=== PATIENT | female | born 1955 | race African-American/Black ===

== ENCOUNTER 2024-01-23 19:23 | Inpatient (IN) | payer MEDICARE, MEDICAID ==
[~2024-01-23] VITALS: Ht 165.1 cm; Wt 65.3 kg
[2024-01-23] MEDS: SODIUM CHLORIDE 0.9% 1000ML BAG (SEPSIS BOLUS) IV ONE (20:01)
[2024-01-23 20:11] LABS: HEMATOCRIT. 21.9 % (36.0-48.0); HEMOGLOBIN. 7.5 g/dL (12.0-16.0); MEAN CORPUSCULAR HEMOGLOBIN 31.3 pg (28.0-32.0); MEAN CORPUSCULAR HGB CONC 34.4 g/dL (31.0-37.0); MEAN PLATELET VOLUME 9.1 fl (7.4-10.4); PLATELET 140 x1000/uL (130-400); RED BLOOD CELL COUNT 2.41 mill/uL (4.2-5.4); RED CELL DISTRIBUTION WIDTH 18.8 % (11.6-14.6); WHITE BLOOD COUNT 10.4 x1000/uL (4.5-11.0)
[2024-01-23 20:13] LABS: DIFFERENTIAL COMMENT 1
[2024-01-23 20:17] LABS: CHLORIDE 102 mEq/L (98-107); SODIUM 140 mEq/L (136-145)
[2024-01-23 20:18] LABS: CALCIUM 10.5 mg/dL (8.7-10.4); CARBON DIOXIDE 29 mEq/L (21-32)
[2024-01-23 20:22] LABS: INR 1.1
[2024-01-23 20:23] LABS: CREATININE 2.2 mg/dL (0.6-1.0); GLUCOSE 144 mg/dL (70-105); UREA NITROGEN BLOOD 38 mg/dL (9-23)
[2024-01-23 20:25] LABS: LACTIC ACID 2.7 mmol/L (0.4-2.0)
[2024-01-23 20:27] LABS: POTASSIUM 2.6 mEq/L (3.5-5.1); TROPONIN I HIGH SENSITIVITY 375 ng/L (3.0-34)
[2024-01-23 21:16] LABS: ANISOCYTOSIS 2+; NUCLEATED RED BLOOD CELLS 5 /100 WBC; PLATELET ESTIMATE NORMAL
[2024-01-23] MEDS: KCL 20MEQ/100ML PREMIX 100 ML IV NR (22:27)
[2024-01-23] MEDS: ENOXAPARIN 60MG/0.6ML SYR SUBCUT NR (22:27)
[2024-01-23] MEDS: ASPIRIN 325MG EC TABLET PO NR (22:27)
[2024-01-23] MEDS: PIPERACILLIN/TAZO 3.375G/50ML 50 ML IV NR (23:14)
[2024-01-23] MEDS: ASPIRIN 81MG TABLET GT ONE (23:16)
[2024-01-23 23:39] LABS: GLUCOSE URINE NEGATIVE (NEGATIVE); KETONES URINE TRACE (NEGATIVE)
[2024-01-23 23:45] LABS: CLARITY URINE TURBID (CLEAR)
[2024-01-23 23:46] LABS: LEUKOCYTE ESTERASE URINE 3+ (NEGATIVE); NITRITE URINE POSITIVE (NEGATIVE); OCCULT BLOOD URINE TRACE (NEGATIVE); PROTEIN URINE TRACE (NEGATIVE); SPECIFIC GRAVITY URINE 1.031 (1.005-1.030); UROBILINOGEN URINE 0.2 E.U./dL (0.2-1.0)
[2024-01-23 23:48] LABS: COLOR URINE BROWN (YELLOW)
[2024-01-23 23:50] LABS: TROPONIN I HIGH SENSITIVITY 386 ng/L (3.0-34)
[2024-01-23 23:50] LABS: RBC URINE TNTC /hpf (0-2); SQUAMOUS EPITHELIAL CELL URINE 2+ /lpf (RARE/1+); WBC URINE TNTC /hpf (0-2)
[2024-01-23 23:51] LABS: BACTERIA URINE 4+
[2024-01-24] VITALS (21 sets, daily range): BP systolic 73–92; BP diastolic 43–59; PULSE 86–108; RESP 7–38; TEMP 97.2–98.9
[2024-01-24] MEDS ORDERED: MIDODRINE HCL 5MG TABLET PO SCH
[2024-01-24] MEDS: MIDODRINE HCL 5MG TABLET PO NR (00:39)
[2024-01-24] MEDS ORDERED: ACETAMINOPHEN 650MG/20.3ML UDC PO PRN (05:15)
[2024-01-24] MEDS ORDERED: NON FORMULARY PATIENT HOME MED XX SCH (05:15)
[2024-01-24] MEDS ORDERED: IPRATROPIUM BROMIDE (0.02%) 0.5MG/2.5ML NEB HHN PRN (05:15)
[2024-01-24] MEDS: PIPERACILLIN/TAZO 3.375G/50ML 50 ML IV SCH (06:01)
[2024-01-24] MEDS: PANTOPRAZOLE SODIUM 40 MG/VIAL IV SCH (06:01)
[2024-01-24] MEDS: POTASSIUM CHLORIDE 20MEQ/PACKET PO NR (06:02)
[2024-01-24] MEDS: MIDODRINE HCL 5MG TABLET PO SCH ×2 (06:02→13:41)
[2024-01-24] MEDS: HYDROCODONE/ACETAMINOPHEN 5/325MG TABLET PO PRN (06:06)
[2024-01-24] MEDS: VANCOMYCIN 1GM/200ML PMX (BAXTER) IV NR (10:12)
[2024-01-24] MEDS: FOLIC ACID/VITAMIN B COMP W-C TABLET PO SCH (10:13)
[2024-01-24] MEDS ORDERED: DOCUSATE SODIUM 100MG CAPSULE PO PRN (10:15)
[2024-01-24] MEDS: LEVOTHYROXINE SODIUM 25MCG TABLET PO SCH (10:15)
[2024-01-24] MEDS: SODIUM CHLORIDE 0.45% 1,000 ML IV SCH (10:47)
[2024-01-24] MEDS: SODIUM CHLORIDE 0.9% 250 ML IV ONE (10:48)
[2024-01-24 10:53] LABS: BG BASE EXCESS -0.2 mmol/L (-2.0-2.0); BG CARBOXYHEMOGLOBIN 0.3 % (0.5-1.5); BG DEOXYHEMOGLOBIN 1.2 % (0.0-5.0); BG FRACTION INSPIRED OXYGEN 50; BG HCO3 ACT 25.6 mmol/L (22.0-26.0); BG METHEMOGLOBIN 0.3 % (0.0-1.5); BG OXYGEN SATURATION 98.8 % (92.0-98.5); BG OXYHEMOGLOBIN 98.2 % (94.0-97.0); BG PCO2 47.6 mmHg (35.0-45.0); BG PH 7.349 (7.350-7.450); BG PO2 145.6 mmHg (75.0-100.0); BG SAMPLE SITE RIGHT RADIAL; BG TOTAL HEMOGLOBIN 8.6 g/dL (12.0-18.0)
[2024-01-24 10:55] LABS: HEMATOCRIT. 24.8 % (36.0-48.0); HEMOGLOBIN. 8.4 g/dL (12.0-16.0); MEAN CORPUSCULAR HEMOGLOBIN 30.4 pg (28.0-32.0); MEAN CORPUSCULAR HGB CONC 33.9 g/dL (31.0-37.0); MEAN CORPUSCULAR VOLUME 89.6 fL (81.0-99.0); MEAN PLATELET VOLUME 9.5 fl (7.4-10.4); PLATELET 103 x1000/uL (130-400); RED BLOOD CELL COUNT 2.77 mill/uL (4.2-5.4); RED CELL DISTRIBUTION WIDTH 17.7 % (11.6-14.6); WHITE BLOOD COUNT 7.8 x1000/uL (4.5-11.0)
[2024-01-24 10:58] LABS: POTASSIUM 3.9 mEq/L (3.5-5.1)
[2024-01-24 10:59] LABS: CALCIUM 10.3 mg/dL (8.7-10.4)
[2024-01-24 11:03] LABS: DIFFERENTIAL COMMENT 1
[2024-01-24 11:04] LABS: CREATININE 2.2 mg/dL (0.6-1.0)
[2024-01-24 12:00] LABS: IRON 54 ug/dL (50-170)
[2024-01-24 12:01] LABS: CREATINE KINASE MB FRACTION 2.7 ng/mL (0.5-3.6); TRIGLYCERIDE 384 mg/dL (0-150)
[2024-01-24 12:02] LABS: LDL CHOLESTEROL 87 mg/dL (5-100)
[2024-01-24 12:03] LABS: ALANINE AMINOTRANSFERASE 18 IU/L (10-49); ASPARTATE AMINOTRANSFERASE 36 IU/L (<34); BILIRUBIN TOTAL < 0.2 mg/dL (0.1-1.0); CHOLESTEROL 160 mg/dL (<200); CREATINE KINASE 30 IU/L (34-145); HDL CHOLESTEROL 28 mg/dL (>65); PHOSPHORUS 2.7 mg/dL (2.5-4.9)
[2024-01-24 12:04] LABS: TOTAL IRON BINDING CAPACITY 279 ug/dl (250-425)
[2024-01-24 12:05] LABS: T4 FREE 0.15 ng/dL (0.89-1.76); THYROID STIMULATING HORMONE 54.39 uIU/mL (0.55-4.78)
[2024-01-24] MEDS: BLOOD SUGAR DIAGNOSTIC STRIP TEST SCH (12:30)
[2024-01-24 12:33] LABS: BILIRUBIN DIRECT < 0.1 mg/dL (<=3.0)
[2024-01-24 12:34] LABS: TROPONIN I HIGH SENSITIVITY 293 ng/L (3.0-34)
[2024-01-24] MEDS: INSULIN LISPRO 100 UNITS/ML SUBCUT SCH (13:00)
[2024-01-24] MEDS: SODIUM CHLORIDE 0.9% 500 ML IV ONE (13:42)
[2024-01-24 15:56] LABS: BG BASE EXCESS -2.1 mmol/L (-2.0-2.0); BG CARBOXYHEMOGLOBIN 0.5 % (0.5-1.5); BG DEOXYHEMOGLOBIN 2.9 % (0.0-5.0); BG FRACTION INSPIRED OXYGEN 40; BG HCO3 ACT 22.8 mmol/L (22.0-26.0); BG METHEMOGLOBIN 0.3 % (0.0-1.5); BG OXYGEN SATURATION 97.1 % (92.0-98.5); BG OXYHEMOGLOBIN 96.3 % (94.0-97.0); BG PCO2 39.4 mmHg (35.0-45.0); BG PH 7.381 (7.350-7.450); BG PO2 91.1 mmHg (75.0-100.0); BG SAMPLE SITE RIGHT RADIAL; BG TOTAL HEMOGLOBIN 8.2 g/dL (12.0-18.0); BG VENT MODE MASK - BIPAP
[2024-01-24 16:40] LABS: NUCLEATED RED BLOOD CELLS 19 /100 WBC; PLATELET ESTIMATE SLIGHTLY DECREASED
[2024-01-24] MEDS: EPOETIN ALFA-EPBX 4,000 UNIT/ML VIAL SUBCUT SCH (22:06)
[2024-01-24] MEDS: ENOXAPARIN 60MG/0.6ML SYR SUBCUT SCH (22:08)
[2024-01-24 22:17] LABS: FERRITIN > 1650 ng/mL (10-291)
[2024-01-24 22:18] LABS: FOLIC ACID (FOLATE) SERUM 12.11 ng/mL (>5.38)
[2024-01-24 22:19] LABS: VITAMIN B12 SERUM 667 pg/mL (211-911)
[2024-01-24 22:28] LABS: HEPATITIS B SURFACE ANTIGEN NEGATIVE (Negative)
[2024-01-24 22:34] LABS: TRIOIODOTHYRONINE TOTAL < 0.00 ng/ml (0.60-1.81)
[2024-01-24 22:48] LABS: HEPATITIS A AB IGM NEGATIVE (Negative)
[2024-01-24 22:49] LABS: HEPATITIS B CORE AB IGM NEGATIVE (Negative); HEPATITIS C AB NON REACTIVE (Neg) (Negative)
[2024-01-25] VITALS (25 sets, daily range): BP systolic 80–97; BP diastolic 44–68; PULSE 86–108; RESP 22–42; TEMP 97.1–98.6
[2024-01-25 05:45] LABS: CHLORIDE 107 mEq/L (98-107); POTASSIUM 3.6 mEq/L (3.5-5.1); SODIUM 139 mEq/L (136-145)
[2024-01-25 05:46] LABS: CALCIUM 10.2 mg/dL (8.7-10.4); CARBON DIOXIDE 20 mEq/L (21-32)
[2024-01-25 05:47] LABS: HEMATOCRIT. 23.2 % (36.0-48.0); HEMOGLOBIN. 8.2 g/dL (12.0-16.0); MEAN CORPUSCULAR HEMOGLOBIN 31.9 pg (28.0-32.0); MEAN CORPUSCULAR HGB CONC 35.5 g/dL (31.0-37.0); MEAN CORPUSCULAR VOLUME 90.1 fL (81.0-99.0); MEAN PLATELET VOLUME 9.2 fl (7.4-10.4); PLATELET 121 x1000/uL (130-400); RED BLOOD CELL COUNT 2.58 mill/uL (4.2-5.4); RED CELL DISTRIBUTION WIDTH 17.9 % (11.6-14.6)
[2024-01-25 05:52] LABS: ALBUMIN 2.9 g/dL (3.2-4.8); CREATININE 2.5 mg/dL (0.6-1.0); GLUCOSE 123 mg/dL (70-105); UREA NITROGEN BLOOD 53 mg/dL (9-23)
[2024-01-25 05:53] LABS: ALANINE AMINOTRANSFERASE 21 IU/L (10-49)
[2024-01-25 05:54] LABS: ASPARTATE AMINOTRANSFERASE 44 IU/L (<34); BILIRUBIN TOTAL < 0.2 mg/dL (0.1-1.0)
[2024-01-25 06:29] LABS: BILIRUBIN DIRECT < 0.1 mg/dL (<=3.0)
[2024-01-25 06:50] LABS: DIFFERENTIAL COMMENT 1
[2024-01-25] MEDS: MAGNESIUM 2 G PREMIX 50 ML IV NR (10:28)
[2024-01-25] MEDS ORDERED: NALOXONE HCL 0.4MG/ML VIAL IV PRN (11:45)
[2024-01-25] MEDS: SODIUM CHLORIDE 0.9% 500 ML IV ONE ×2 (13:02→15:13)
[2024-01-25 16:14] LABS: NUCLEATED RED BLOOD CELLS 7 /100 WBC
[2024-01-25 16:15] LABS: ANISOCYTOSIS 1+; PLATELET ESTIMATE DECREASED
[2024-01-25] MEDS: PIPERACILLIN/TAZO 3.375G/50ML 50 ML IV SCH (20:36)
[2024-01-26] VITALS (70 sets, daily range): BP systolic 58–145; BP diastolic 29–91; PULSE 81–131; RESP 13–42; TEMP 97.3–98.6
[2024-01-26 05:19] LABS: CHLORIDE 103 mEq/L (98-107); POTASSIUM 3.3 mEq/L (3.5-5.1); SODIUM 135 mEq/L (136-145)
[2024-01-26 05:20] LABS: CARBON DIOXIDE 22 mEq/L (21-32)
[2024-01-26 05:21] LABS: CALCIUM 10.1 mg/dL (8.7-10.4)
[2024-01-26 05:25] LABS: GLUCOSE 106 mg/dL (70-105); UREA NITROGEN BLOOD 31 mg/dL (9-23)
[2024-01-26] MEDS: LEVOTHYROXINE SODIUM 25MCG TABLET PO SCH (07:30)
[2024-01-26] MEDS: IPRATROPIUM/ALBUTEROL 0.5-3(2.5)MG/3ML NEB HHN PRN (08:25)
[2024-01-26 09:03] LABS: HEMATOCRIT. 23.7 % (36.0-48.0); MEAN CORPUSCULAR HEMOGLOBIN 30.5 pg (28.0-32.0); MEAN CORPUSCULAR HGB CONC 33.8 g/dL (31.0-37.0); MEAN CORPUSCULAR VOLUME 90.5 fL (81.0-99.0); MEAN PLATELET VOLUME 9.6 fl (7.4-10.4); PLATELET 135 x1000/uL (130-400); RED BLOOD CELL COUNT 2.62 mill/uL (4.2-5.4); RED CELL DISTRIBUTION WIDTH 18.2 % (11.6-14.6); WHITE BLOOD COUNT 8.2 x1000/uL (4.5-11.0)
[2024-01-26 09:05] LABS: DIFFERENTIAL COMMENT 1
[2024-01-26 10:02] LABS: BG BASE EXCESS -4.9 mmol/L (-2.0-2.0); BG CARBOXYHEMOGLOBIN 0.2 % (0.5-1.5); BG DEOXYHEMOGLOBIN 5.4 % (0.0-5.0); BG FRACTION INSPIRED OXYGEN 60; BG HCO3 ACT 23.1 mmol/L (22.0-26.0); BG METHEMOGLOBIN 0.3 % (0.0-1.5); BG OXYGEN SATURATION 94.6 % (92.0-98.5); BG OXYHEMOGLOBIN 94.1 % (94.0-97.0); BG PCO2 58.8 mmHg (35.0-45.0); BG PH 7.212 (7.350-7.450); BG SAMPLE SITE RIGHT RADIAL; BG TOTAL HEMOGLOBIN 9.2 g/dL (12.0-18.0); BG TOTAL RESPIRATORY RATE 18 b/min; BG VENT MODE MASK - BIPAP
[2024-01-26] MEDS: KCL 20MEQ/100ML PREMIX 100 ML IV SCH (10:33)
[2024-01-26] MEDS ORDERED: ETOMIDATE 2MG/ML 10ML VIAL IV ONE (11:03)
[2024-01-26] MEDS: NOREPINEPHRINE 8MG/250ML PMX 250 ML IV PRN (11:08)
[2024-01-26] MEDS ORDERED: MIDAZOLAM 100MG/100ML PMX 100 ML IV PRN (11:15)
[2024-01-26 11:59] LABS: BG BASE EXCESS -2.3 mmol/L (-2.0-2.0); BG CARBOXYHEMOGLOBIN 0.3 % (0.5-1.5); BG DEOXYHEMOGLOBIN 0.1 % (0.0-5.0); BG FRACTION INSPIRED OXYGEN 100; BG HCO3 ACT 23.7 mmol/L (22.0-26.0); BG METHEMOGLOBIN 0.3 % (0.0-1.5); BG OXYGEN SATURATION 99.9 % (92.0-98.5); BG OXYHEMOGLOBIN 99.3 % (94.0-97.0); BG PCO2 45.9 mmHg (35.0-45.0); BG PH 7.331 (7.350-7.450); BG PO2 361.6 mmHg (75.0-100.0); BG SAMPLE SITE RIGHT BRACHIAL; BG TOTAL HEMOGLOBIN 11.9 g/dL (12.0-18.0); BG VENT MODE VENT - AC
[2024-01-26] MEDS: SODIUM BICARBONATE 8.4% 50MEQ/50ML SYR IV NR (12:20)
[2024-01-26] MEDS: FENTANYL 2500MCG/250ML PMX 250 ML IV PRN (12:54)
[2024-01-26 13:20] LABS: POTASSIUM 4.6 mEq/L (3.5-5.1)
[2024-01-26 13:21] LABS: CALCIUM 10.2 mg/dL (8.7-10.4)
[2024-01-26 13:26] LABS: CREATININE 2.2 mg/dL (0.6-1.0)
[2024-01-26] MEDS: VANCOMYCIN 1.25GM PMX (XELLIA) 250 ML IV SCH (15:51)
[2024-01-26 17:44] LABS: BG CARBOXYHEMOGLOBIN 0.6 % (0.5-1.5); BG DEOXYHEMOGLOBIN 2.5 % (0.0-5.0); BG FRACTION INSPIRED OXYGEN 50; BG HCO3 ACT 24.3 mmol/L (22.0-26.0); BG METHEMOGLOBIN 0.3 % (0.0-1.5); BG OXYGEN SATURATION 97.5 % (92.0-98.5); BG OXYHEMOGLOBIN 96.6 % (94.0-97.0); BG PCO2 32.8 mmHg (35.0-45.0); BG PH 7.487 (7.350-7.450); BG PO2 88.9 mmHg (75.0-100.0); BG SAMPLE SITE LEFT RADIAL; BG TOTAL RESPIRATORY RATE 18 b/min; BG VENT MODE VENT - AC
[2024-01-26 20:20] LABS: ANISOCYTOSIS 1+; NUCLEATED RED BLOOD CELLS 9 /100 WBC
[2024-01-26 20:22] LABS: PLATELET ESTIMATE NORMAL
[2024-01-26] MEDS: MIDAZOLAM HCL 100 MG in SODIUM CHLORIDE 0.9% 100 ML IV PRN (22:48)
[2024-01-27] VITALS (82 sets, daily range): BP systolic 73–124; BP diastolic 46–82; PULSE 66–105; RESP 0–32; TEMP 97.1–98.3
[2024-01-27] MEDS: METHYLPREDNISOLONE SOD SUCC 40MG/ML (ACT-O-VIAL) IV SCH (01:53)
[2024-01-27 06:57] LABS: POTASSIUM 3.9 mEq/L (3.5-5.1)
[2024-01-27 06:58] LABS: CALCIUM 10.1 mg/dL (8.7-10.4)
[2024-01-27 07:01] LABS: HEMATOCRIT. 24.4 % (36.0-48.0); HEMOGLOBIN. 8.1 g/dL (12.0-16.0); MEAN CORPUSCULAR HEMOGLOBIN 30.1 pg (28.0-32.0); MEAN CORPUSCULAR HGB CONC 33.3 g/dL (31.0-37.0); MEAN CORPUSCULAR VOLUME 90.2 fL (81.0-99.0); MEAN PLATELET VOLUME 9.2 fl (7.4-10.4); PLATELET 139 x1000/uL (130-400); RED CELL DISTRIBUTION WIDTH 17.9 % (11.6-14.6); WHITE BLOOD COUNT 9.6 x1000/uL (4.5-11.0)
[2024-01-27 07:03] LABS: CREATININE 2.5 mg/dL (0.6-1.0)
[2024-01-27 07:10] LABS: DIFFERENTIAL COMMENT 1
[2024-01-27] MEDS: LIDOCAINE HCL 1% 10 MG/ML 10ML VIAL ONE (07:48)
[2024-01-27 14:13] LABS: NUCLEATED RED BLOOD CELLS 7 /100 WBC
[2024-01-27 14:14] LABS: ANISOCYTOSIS 1+; PLATELET ESTIMATE NORMAL
[2024-01-28] VITALS (111 sets, daily range): BP systolic 60–162; BP diastolic 33–98; PULSE 62–97; RESP 10–24; TEMP 97.4–98.8; O2SAT 100
[2024-01-28] MEDS ORDERED: INSULIN LISPRO 100 UNITS/ML SUBCUT SCH (09:00)
[2024-01-28] MEDS ORDERED: BLOOD SUGAR DIAGNOSTIC STRIP TEST SCH (09:00)
[2024-01-28] MEDS: BLOOD SUGAR DIAGNOSTIC STRIP TEST SCH (12:00)
[2024-01-28] MEDS: INSULIN LISPRO 100 UNITS/ML SUBCUT SCH (12:53)
[2024-01-28 13:25] LABS: MEAN CORPUSCULAR HEMOGLOBIN 30.8 pg (28.0-32.0); MEAN CORPUSCULAR HGB CONC 33.8 g/dL (31.0-37.0); PLATELET 143 x1000/uL (130-400); RED BLOOD CELL COUNT 2.18 mill/uL (4.2-5.4); RED CELL DISTRIBUTION WIDTH 17.6 % (11.6-14.6); WHITE BLOOD COUNT 11.3 x1000/uL (4.5-11.0)
[2024-01-28 13:29] LABS: POTASSIUM 3.4 mEq/L (3.5-5.1)
[2024-01-28 13:31] LABS: CALCIUM 9.3 mg/dL (8.7-10.4)
[2024-01-28 13:38] LABS: PROTHROMBIN TIME 10.7 sec (9.6-11.0)
[2024-01-28 13:40] LABS: DIFFERENTIAL COMMENT 1
[2024-01-28 13:45] LABS: HEMOGLOBIN. 6.7 g/dL (12.0-16.0)
[2024-01-28 13:46] LABS: HEMATOCRIT. 19.8 % (36.0-48.0)
[2024-01-28 14:19] LABS: NUCLEATED RED BLOOD CELLS 6 /100 WBC
[2024-01-28 14:20] LABS: ANISOCYTOSIS 1+; PLATELET ESTIMATE NORMAL
[2024-01-28] MEDS: POTASSIUM CHLORIDE 20MEQ TABLET SR PO NR (14:52)
[2024-01-28] MEDS: VANCOMYCIN 750MG/150ML (BAXTER) IV NR (21:13)
[2024-01-28 21:54] LABS: HEMATOCRIT. 24.2 % (36.0-48.0); HEMOGLOBIN. 8.1 g/dL (12.0-16.0); MEAN CORPUSCULAR HEMOGLOBIN 29.9 pg (28.0-32.0); MEAN CORPUSCULAR HGB CONC 33.4 g/dL (31.0-37.0); MEAN CORPUSCULAR VOLUME 89.6 fL (81.0-99.0); MEAN PLATELET VOLUME 9.2 fl (7.4-10.4); PLATELET 130 x1000/uL (130-400); RED CELL DISTRIBUTION WIDTH 17.1 % (11.6-14.6)
[2024-01-28 21:56] LABS: DIFFERENTIAL COMMENT 1
[2024-01-28 22:07] LABS: PROTHROMBIN TIME 11.3 sec (9.6-11.0)
[2024-01-28 22:45] LABS: ANISOCYTOSIS 1+; NUCLEATED RED BLOOD CELLS 12 /100 WBC; PLATELET ESTIMATE NORMAL
[2024-01-29] VITALS (112 sets, daily range): BP systolic 79–149; BP diastolic 50–101; PULSE 7–146; RESP 0–35; TEMP 97.5–98.2
[2024-01-29 05:37] LABS: HEMATOCRIT. 23.7 % (36.0-48.0); HEMOGLOBIN. 7.8 g/dL (12.0-16.0); MEAN CORPUSCULAR HEMOGLOBIN 30.2 pg (28.0-32.0); MEAN CORPUSCULAR HGB CONC 33.2 g/dL (31.0-37.0); MEAN PLATELET VOLUME 9.2 fl (7.4-10.4); PLATELET 133 x1000/uL (130-400); POTASSIUM 4.1 mEq/L (3.5-5.1); WHITE BLOOD COUNT 13.9 x1000/uL (4.5-11.0)
[2024-01-29 05:38] LABS: CALCIUM 9.1 mg/dL (8.7-10.4)
[2024-01-29 05:43] LABS: CREATININE 2.3 mg/dL (0.6-1.0)
[2024-01-29 05:44] LABS: PROTHROMBIN TIME 10.7 sec (9.6-11.0)
[2024-01-29 07:02] LABS: DIFFERENTIAL COMMENT 1
[2024-01-29 10:44] LABS: ANISOCYTOSIS 1+; NUCLEATED RED BLOOD CELLS 21 /100 WBC; PLATELET ESTIMATE NORMAL
[2024-01-29 14:46] LABS: BG BASE EXCESS -2.8 mmol/L (-2.0-2.0); BG CARBOXYHEMOGLOBIN 0.3 % (0.5-1.5); BG DEOXYHEMOGLOBIN 1.3 % (0.0-5.0); BG FRACTION INSPIRED OXYGEN 40; BG HCO3 ACT 20.3 mmol/L (22.0-26.0); BG METHEMOGLOBIN 0.3 % (0.0-1.5); BG OXYGEN SATURATION 98.7 % (92.0-98.5); BG OXYHEMOGLOBIN 98.1 % (94.0-97.0); BG PCO2 28.8 mmHg (35.0-45.0); BG PH 7.467 (7.350-7.450); BG PO2 116.8 mmHg (75.0-100.0); BG SAMPLE SITE LEFT RADIAL; BG TOTAL HEMOGLOBIN 8.2 g/dL (12.0-18.0); BG TOTAL RESPIRATORY RATE 20 b/min; BG VENT MODE VENT - AC
[2024-01-29] MEDS: DILTIAZEM HCL 30MG TABLET PO SCH (18:05)
[2024-01-29 18:11] LABS: BG BASE EXCESS -2.3 mmol/L (-2.0-2.0); BG CARBOXYHEMOGLOBIN 0.3 % (0.5-1.5); BG DEOXYHEMOGLOBIN 8.3 % (0.0-5.0); BG FRACTION INSPIRED OXYGEN 40; BG HCO3 ACT 24.9 mmol/L (22.0-26.0); BG METHEMOGLOBIN 0.3 % (0.0-1.5); BG OXYGEN SATURATION 91.6 % (92.0-98.5); BG OXYHEMOGLOBIN 91.1 % (94.0-97.0); BG PCO2 55.3 mmHg (35.0-45.0); BG PH 7.271 (7.350-7.450); BG PO2 68.5 mmHg (75.0-100.0); BG SAMPLE SITE LEFT RADIAL; BG TOTAL HEMOGLOBIN 9.2 g/dL (12.0-18.0); BG VENT MODE VENT - CPAP
[2024-01-30] VITALS (66 sets, daily range): BP systolic 86–128; BP diastolic 51–85; PULSE 87–107; RESP 13–28; TEMP 98–99
[2024-01-30 05:52] LABS: HEMATOCRIT. 22.3 % (36.0-48.0); HEMOGLOBIN. 7.4 g/dL (12.0-16.0); MEAN CORPUSCULAR HEMOGLOBIN 29.9 pg (28.0-32.0); MEAN CORPUSCULAR HGB CONC 33.2 g/dL (31.0-37.0); MEAN CORPUSCULAR VOLUME 90.1 fL (81.0-99.0); MEAN PLATELET VOLUME 8.6 fl (7.4-10.4); PLATELET 135 x1000/uL (130-400); RED BLOOD CELL COUNT 2.48 mill/uL (4.2-5.4); RED CELL DISTRIBUTION WIDTH 17.4 % (11.6-14.6)
[2024-01-30 05:55] LABS: DIFFERENTIAL COMMENT 1
[2024-01-30 06:02] LABS: POTASSIUM 3.6 mEq/L (3.5-5.1)
[2024-01-30 06:03] LABS: CALCIUM 9.1 mg/dL (8.7-10.4)
[2024-01-30] MEDS: LEVOTHYROXINE SODIUM 75MCG TABLET PO SCH (08:03)
[2024-01-30 17:01] LABS: ANISOCYTOSIS 1+; NUCLEATED RED BLOOD CELLS 17 /100 WBC; PLATELET ESTIMATE NORMAL
[2024-01-31] VITALS (65 sets, daily range): BP systolic 91–153; BP diastolic 56–97; PULSE 69–108; RESP 0–23; TEMP 97.5–98.9
[2024-01-31 08:36] LABS: MEAN CORPUSCULAR HEMOGLOBIN 29.7 pg (28.0-32.0); MEAN CORPUSCULAR HGB CONC 32.5 g/dL (31.0-37.0); MEAN CORPUSCULAR VOLUME 91.5 fL (81.0-99.0); MEAN PLATELET VOLUME 8.9 fl (7.4-10.4); PLATELET 142 x1000/uL (130-400); RED BLOOD CELL COUNT 2.28 mill/uL (4.2-5.4); RED CELL DISTRIBUTION WIDTH 17.9 % (11.6-14.6); WHITE BLOOD COUNT 18.4 x1000/uL (4.5-11.0)
[2024-01-31 08:52] LABS: BG BASE EXCESS -3.6 mmol/L (-2.0-2.0); BG CARBOXYHEMOGLOBIN 0.3 % (0.5-1.5); BG DEOXYHEMOGLOBIN 1.3 % (0.0-5.0); BG FRACTION INSPIRED OXYGEN 40; BG HCO3 ACT 20.4 mmol/L (22.0-26.0); BG METHEMOGLOBIN 0.3 % (0.0-1.5); BG OXYGEN SATURATION 98.7 % (92.0-98.5); BG OXYHEMOGLOBIN 98.1 % (94.0-97.0); BG PCO2 31.9 mmHg (35.0-45.0); BG PH 7.423 (7.350-7.450); BG PO2 123.6 mmHg (75.0-100.0); BG SAMPLE SITE LEFT RADIAL; BG TOTAL HEMOGLOBIN 7.1 g/dL (12.0-18.0); BG VENT MODE VENT - AC
[2024-01-31 09:05] LABS: POTASSIUM 3.6 mEq/L (3.5-5.1)
[2024-01-31 09:06] LABS: CALCIUM 9.1 mg/dL (8.7-10.4)
[2024-01-31 09:11] LABS: CREATININE 2.6 mg/dL (0.6-1.0)
[2024-01-31 09:40] LABS: DIFFERENTIAL COMMENT 1
[2024-01-31 09:43] LABS: HEMATOCRIT. 20.9 % (36.0-48.0); HEMOGLOBIN. 6.8 g/dL (12.0-16.0)
[2024-01-31 16:30] LABS: NUCLEATED RED BLOOD CELLS 33 /100 WBC; PLATELET ESTIMATE NORMAL
[2024-02-01] VITALS (89 sets, daily range): BP systolic 85–132; BP diastolic 51–82; PULSE 65–120; RESP 0–33; TEMP 97.3–98
[2024-02-01 05:54] LABS: POTASSIUM 3.7 mEq/L (3.5-5.1)
[2024-02-01 05:55] LABS: CALCIUM 8.8 mg/dL (8.7-10.4)
[2024-02-01 06:00] LABS: HEMATOCRIT. 26.6 % (36.0-48.0); MEAN CORPUSCULAR HEMOGLOBIN 30.4 pg (28.0-32.0); MEAN CORPUSCULAR HGB CONC 33.7 g/dL (31.0-37.0); MEAN CORPUSCULAR VOLUME 90.1 fL (81.0-99.0); MEAN PLATELET VOLUME 8.8 fl (7.4-10.4); PLATELET 151 x1000/uL (130-400); RED BLOOD CELL COUNT 2.95 mill/uL (4.2-5.4); RED CELL DISTRIBUTION WIDTH 16.7 % (11.6-14.6); WHITE BLOOD COUNT 19.9 x1000/uL (4.5-11.0)
[2024-02-01 08:09] LABS: DIFFERENTIAL COMMENT 1
[2024-02-01 09:53] LABS: NUCLEATED RED BLOOD CELLS 24 /100 WBC
[2024-02-01 09:55] LABS: ANISOCYTOSIS 1+; PLATELET ESTIMATE NORMAL
[2024-02-01 12:30] LABS: BG BASE EXCESS -1.7 mmol/L (-2.0-2.0); BG CARBOXYHEMOGLOBIN 0.5 % (0.5-1.5); BG DEOXYHEMOGLOBIN 2.1 % (0.0-5.0); BG FRACTION INSPIRED OXYGEN 40; BG HCO3 ACT 21.9 mmol/L (22.0-26.0); BG METHEMOGLOBIN 0.3 % (0.0-1.5); BG OXYGEN SATURATION 97.9 % (92.0-98.5); BG OXYHEMOGLOBIN 97.1 % (94.0-97.0); BG PCO2 32.5 mmHg (35.0-45.0); BG PH 7.446 (7.350-7.450); BG PO2 101.2 mmHg (75.0-100.0); BG SAMPLE SITE RIGHT RADIAL; BG TOTAL HEMOGLOBIN 8.8 g/dL (12.0-18.0); BG VENT MODE VENT - AC
[2024-02-01] MEDS: PIPERACILLIN/TAZO 3.375G/50ML 50 ML IV SCH (12:56)
[2024-02-01] MEDS: VANCOMYCIN 750MG/150ML (BAXTER) IV NR (12:57)
[2024-02-01] MEDS: MIDODRINE HCL 5MG TABLET PO SCH (13:36)
[2024-02-01] MEDS ORDERED: PIPERACILLIN/TAZO 3.375G/50ML 50 ML IV SCH (14:00)
[2024-02-01 19:54] LABS: BG BASE EXCESS -2.2 mmol/L (-2.0-2.0); BG CARBOXYHEMOGLOBIN 0.3 % (0.5-1.5); BG DEOXYHEMOGLOBIN 2.3 % (0.0-5.0); BG FRACTION INSPIRED OXYGEN 40; BG HCO3 ACT 21.4 mmol/L (22.0-26.0); BG OXYGEN SATURATION 97.7 % (92.0-98.5); BG OXYHEMOGLOBIN 97.4 % (94.0-97.0); BG PH 7.443 (7.350-7.450); BG PO2 107.1 mmHg (75.0-100.0); BG SAMPLE SITE RIGHT RADIAL; BG TOTAL HEMOGLOBIN 8.8 g/dL (12.0-18.0); BG VENT MODE VENT - CPAP
[2024-02-02] VITALS (81 sets, daily range): BP systolic 87–140; BP diastolic 59–94; PULSE 87–133; RESP 0–34; TEMP 97.4–98.8
[2024-02-02] MEDS: ONDANSETRON HCL 4MG TABLET PO PRN (03:50)
[2024-02-02 05:58] LABS: POTASSIUM 4.2 mEq/L (3.5-5.1)
[2024-02-02 06:00] LABS: CALCIUM 8.7 mg/dL (8.7-10.4)
[2024-02-02 06:04] LABS: CREATININE 2.6 mg/dL (0.6-1.0)
[2024-02-02 06:17] LABS: HEMATOCRIT 27.7 % (36.0-48.0); HEMOGLOBIN 8.9 g/dL (12.0-16.0); MEAN CORPUSCULAR HEMOGLOBIN 30.3 pg (28.0-32.0); MEAN CORPUSCULAR HGB CONC 32.2 g/dL (31.0-37.0); MEAN CORPUSCULAR VOLUME 94.2 fL (81.0-99.0); PLATELET 150 x1000/uL (130-400); RED BLOOD CELL COUNT 2.94 mill/uL (4.2-5.4); RED CELL DISTRIBUTION WIDTH 17.8 % (11.6-14.6); WHITE BLOOD COUNT 19.7 x1000/uL (4.5-11.0)
[2024-02-02 08:11] LABS: BG BASE EXCESS -4.3 mmol/L (-2.0-2.0); BG CARBOXYHEMOGLOBIN 0.3 % (0.5-1.5); BG DEOXYHEMOGLOBIN 2.5 % (0.0-5.0); BG FRACTION INSPIRED OXYGEN 40; BG HCO3 ACT 20.1 mmol/L (22.0-26.0); BG METHEMOGLOBIN 0.3 % (0.0-1.5); BG OXYGEN SATURATION 97.5 % (92.0-98.5); BG OXYHEMOGLOBIN 96.9 % (94.0-97.0); BG PCO2 33.9 mmHg (35.0-45.0); BG SAMPLE SITE RIGHT RADIAL; BG TOTAL HEMOGLOBIN 9.5 g/dL (12.0-18.0); BG VENT MODE VENT - CPAP
[2024-02-02] MEDS: ONDANSETRON HCL 4MG/2ML INJ IV PRN (09:23)
[2024-02-02 15:13] LABS: BG BASE EXCESS -1.5 mmol/L (-2.0-2.0); BG CARBOXYHEMOGLOBIN 0.3 % (0.5-1.5); BG DEOXYHEMOGLOBIN 2.4 % (0.0-5.0); BG FRACTION INSPIRED OXYGEN 50; BG HCO3 ACT 22.9 mmol/L (22.0-26.0); BG METHEMOGLOBIN 0.3 % (0.0-1.5); BG OXYGEN SATURATION 97.6 % (92.0-98.5); BG PH 7.409 (7.350-7.450); BG PO2 103.2 mmHg (75.0-100.0); BG SAMPLE SITE RIGHT RADIAL; BG TOTAL HEMOGLOBIN 9.8 g/dL (12.0-18.0); BG VENT MODE MASK - BIPAP
[2024-02-03] VITALS (88 sets, daily range): BP systolic 98–145; BP diastolic 58–96; PULSE 80–135; RESP 13–40; TEMP 97.1–98.9
[2024-02-03] MEDS: DILTIAZEM HCL 5MG/ML 5ML VIAL IV NR (04:29)
[2024-02-03] MEDS: DILTIAZEM HCL 125 MG in DEXT 5% WATER 100 ML IV PRN (04:50)
[2024-02-03 07:15] LABS: BG BASE EXCESS -4.2 mmol/L (-2.0-2.0); BG CARBOXYHEMOGLOBIN 0.3 % (0.5-1.5); BG DEOXYHEMOGLOBIN 0.5 % (0.0-5.0); BG METHEMOGLOBIN 0.3 % (0.0-1.5); BG OXYGEN SATURATION 99.5 % (92.0-98.5); BG OXYHEMOGLOBIN 98.9 % (94.0-97.0); BG PCO2 38.8 mmHg (35.0-45.0); BG PH 7.351 (7.350-7.450); BG PO2 228.7 mmHg (75.0-100.0); BG SAMPLE SITE ALINE; BG TOTAL HEMOGLOBIN 12.1 g/dL (12.0-18.0)
[2024-02-03] MEDS: METOPROLOL TARTRATE 25MG TABLET PO SCH (21:00)
[2024-02-03 22:18] LABS: HEMOGLOBIN 9.4 g/dL (12.0-16.0); MEAN CORPUSCULAR HEMOGLOBIN 30.2 pg (28.0-32.0); MEAN CORPUSCULAR HGB CONC 32.6 g/dL (31.0-37.0); MEAN CORPUSCULAR VOLUME 92.6 fL (81.0-99.0); PLATELET 171 x1000/uL (130-400); RED BLOOD CELL COUNT 3.13 mill/uL (4.2-5.4); RED CELL DISTRIBUTION WIDTH 17.4 % (11.6-14.6); WHITE BLOOD COUNT 16.8 x1000/uL (4.5-11.0)
[2024-02-03 22:33] LABS: PROTHROMBIN TIME 11.4 sec (9.6-11.0)
[2024-02-04] VITALS (76 sets, daily range): BP systolic 101–154; BP diastolic 47–102; PULSE 63–143; RESP 15–31; TEMP 97.3–99
[2024-02-04] MEDS ORDERED: ACETAMINOPHEN 650MG/20.3ML UDC PO PRN (15:15)
[2024-02-04] MEDS: CEFEPIME 1GM/50ML 50 ML IV SCH (18:22)
[2024-02-05] VITALS (37 sets, daily range): BP systolic 77–136; BP diastolic 57–83; PULSE 58–108; RESP 15–27; TEMP 97.9–98.8
[2024-02-05 05:13] LABS: HEMATOCRIT. 30.1 % (36.0-48.0); HEMOGLOBIN. 9.8 g/dL (12.0-16.0); MEAN CORPUSCULAR HEMOGLOBIN 30.5 pg (28.0-32.0); MEAN CORPUSCULAR HGB CONC 32.4 g/dL (31.0-37.0); MEAN PLATELET VOLUME 8.4 fl (7.4-10.4); PLATELET 199 x1000/uL (130-400); RED BLOOD CELL COUNT 3.21 mill/uL (4.2-5.4); RED CELL DISTRIBUTION WIDTH 17.4 % (11.6-14.6)
[2024-02-05 05:20] LABS: POTASSIUM 3.9 mEq/L (3.5-5.1)
[2024-02-05 05:22] LABS: CALCIUM 8.7 mg/dL (8.7-10.4)
[2024-02-05 05:26] LABS: CREATININE 2.4 mg/dL (0.6-1.0)
[2024-02-05 06:00] LABS: DIFFERENTIAL COMMENT 1
[2024-02-05 09:45] LABS: ANISOCYTOSIS 1+; NUCLEATED RED BLOOD CELLS 19 /100 WBC; PLATELET ESTIMATE NORMAL
[2024-02-05] MEDS: DEXTROSE 50% WATER 50ML SYRINGE IV PRN (23:20)
[2024-02-06] VITALS (32 sets, daily range): BP systolic 100–135; BP diastolic 58–89; PULSE 83–123; RESP 12–29; TEMP 97.7–98.9
[2024-02-06] MEDS: CEFEPIME 1GM/50ML 50 ML IV SCH (05:03)
[2024-02-06 05:05] LABS: POTASSIUM 3.4 mEq/L (3.5-5.1)
[2024-02-06 05:06] LABS: CALCIUM 8.2 mg/dL (8.7-10.4)
[2024-02-06 05:11] LABS: CREATININE 2.1 mg/dL (0.6-1.0)
[2024-02-06 08:34] LABS: BG CARBOXYHEMOGLOBIN 0.3 % (0.5-1.5); BG DEOXYHEMOGLOBIN 2.9 % (0.0-5.0); BG HCO3 ACT 22.2 mmol/L (22.0-26.0); BG METHEMOGLOBIN 0.3 % (0.0-1.5); BG OXYGEN SATURATION 97.1 % (92.0-98.5); BG OXYHEMOGLOBIN 96.5 % (94.0-97.0); BG PCO2 35.7 mmHg (35.0-45.0); BG PH 7.411 (7.350-7.450); BG PO2 94.2 mmHg (75.0-100.0); BG SAMPLE SITE RIGHT RADIAL; BG TOTAL HEMOGLOBIN 10.8 g/dL (12.0-18.0); BG VENT MODE MASK - BIPAP
[2024-02-06 08:52] LABS: HEMATOCRIT. 27.6 % (36.0-48.0); HEMOGLOBIN. 8.8 g/dL (12.0-16.0); MEAN CORPUSCULAR HEMOGLOBIN 29.7 pg (28.0-32.0); PLATELET 177 x1000/uL (130-400); RED BLOOD CELL COUNT 2.97 mill/uL (4.2-5.4); RED CELL DISTRIBUTION WIDTH 17.4 % (11.6-14.6); WHITE BLOOD COUNT 14.7 x1000/uL (4.5-11.0)
[2024-02-06 09:10] LABS: DIFFERENTIAL COMMENT 1
[2024-02-06] MEDS: POTASSIUM CHLORIDE 20MEQ/PACKET PO NR (09:18)
[2024-02-06 13:18] LABS: POTASSIUM 4.5 mEq/L (3.5-5.1)
[2024-02-06 15:35] LABS: NUCLEATED RED BLOOD CELLS 25 /100 WBC
[2024-02-06 15:36] LABS: ANISOCYTOSIS 1+; PLATELET ESTIMATE NORMAL
[2024-02-07] VITALS (25 sets, daily range): BP systolic 104–126; BP diastolic 61–81; PULSE 91–120; RESP 16–27; TEMP 98.3–98.9
[2024-02-07] MEDS: MENTHOL/LANOLIN/CALAMINE/ZN OX OINT 71GM TOP SCH (21:00)
[2024-02-08] VITALS (15 sets, daily range): BP systolic 91–145; BP diastolic 62–100; PULSE 76–146; RESP 15–29; TEMP 97.5–98
[2024-02-08 07:00] LABS: HEMATOCRIT. 28.3 % (36.0-48.0); MEAN CORPUSCULAR HEMOGLOBIN 30.6 pg (28.0-32.0); MEAN CORPUSCULAR HGB CONC 31.9 g/dL (31.0-37.0); MEAN CORPUSCULAR VOLUME 95.9 fL (81.0-99.0); MEAN PLATELET VOLUME 8.1 fl (7.4-10.4); PLATELET 170 x1000/uL (130-400); RED BLOOD CELL COUNT 2.95 mill/uL (4.2-5.4); RED CELL DISTRIBUTION WIDTH 18.3 % (11.6-14.6); WHITE BLOOD COUNT 12.3 x1000/uL (4.5-11.0)
[2024-02-08 07:13] LABS: CALCIUM 8.5 mg/dL (8.7-10.4); POTASSIUM 4.3 mEq/L (3.5-5.1)
[2024-02-08 07:18] LABS: DIFFERENTIAL COMMENT 1
[2024-02-08 07:19] LABS: CREATININE 2.6 mg/dL (0.6-1.0)
[2024-02-08 17:10] LABS: NUCLEATED RED BLOOD CELLS 7 /100 WBC
[2024-02-08 17:11] LABS: ANISOCYTOSIS 1+; PLATELET ESTIMATE NORMAL
[2024-02-09] VITALS (17 sets, daily range): BP systolic 91–153; BP diastolic 51–76; PULSE 75–98; RESP 0–25; TEMP 97.4–97.9
[2024-02-10] VITALS (28 sets, daily range): BP systolic 97–126; BP diastolic 63–91; PULSE 77–115; RESP 16–31; TEMP 97.2–98.5
[2024-02-10 10:54] LABS: BG BASE EXCESS -6.6 mmol/L (-2.0-2.0); BG CARBOXYHEMOGLOBIN 0.3 % (0.5-1.5); BG DEOXYHEMOGLOBIN 2.9 % (0.0-5.0); BG FRACTION INSPIRED OXYGEN 30; BG HCO3 ACT 17.3 mmol/L (22.0-26.0); BG METHEMOGLOBIN 0.3 % (0.0-1.5); BG OXYGEN SATURATION 97.1 % (92.0-98.5); BG OXYHEMOGLOBIN 96.5 % (94.0-97.0); BG PCO2 28.7 mmHg (35.0-45.0); BG PH 7.397 (7.350-7.450); BG PO2 92.8 mmHg (75.0-100.0); BG SAMPLE SITE RIGHT RADIAL; BG TOTAL HEMOGLOBIN 9.3 g/dL (12.0-18.0); BG VENT MODE MASK - BIPAP
[2024-02-10 22:00] LABS: HEMATOCRIT. 27.6 % (36.0-48.0); HEMOGLOBIN. 9.1 g/dL (12.0-16.0); MEAN CORPUSCULAR HEMOGLOBIN 31.2 pg (28.0-32.0); MEAN CORPUSCULAR VOLUME 94.7 fL (81.0-99.0); MEAN PLATELET VOLUME 7.9 fl (7.4-10.4); PLATELET 137 x1000/uL (130-400); RED BLOOD CELL COUNT 2.92 mill/uL (4.2-5.4); RED CELL DISTRIBUTION WIDTH 19.7 % (11.6-14.6); WHITE BLOOD COUNT 13.4 x1000/uL (4.5-11.0)
[2024-02-10 22:05] LABS: DIFFERENTIAL COMMENT 1
[2024-02-10 22:12] LABS: CHLORIDE 103 mEq/L (98-107); POTASSIUM 4.7 mEq/L (3.5-5.1); SODIUM 139 mEq/L (136-145)
[2024-02-10 22:13] LABS: CALCIUM 8.4 mg/dL (8.7-10.4); CARBON DIOXIDE 23 mEq/L (21-32)
[2024-02-10 22:18] LABS: CREATININE 2.5 mg/dL (0.6-1.0); GLUCOSE 104 mg/dL (70-105); UREA NITROGEN BLOOD 52 mg/dL (9-23)
[2024-02-10 22:20] LABS: ALANINE AMINOTRANSFERASE 46 IU/L (10-49); ALBUMIN 3.5 g/dL (3.2-4.8); ASPARTATE AMINOTRANSFERASE 26 IU/L (<34); BILIRUBIN TOTAL 0.2 mg/dL (0.1-1.0); PROTEIN TOTAL 5.8 g/dL (6.0-8.3)
[2024-02-10 22:30] LABS: ANISOCYTOSIS 1+; NUCLEATED RED BLOOD CELLS 8 /100 WBC; PLATELET ESTIMATE NORMAL
[2024-02-11] VITALS (17 sets, daily range): BP systolic 104–120; BP diastolic 62–87; PULSE 78–111; RESP 9–27; TEMP 97–98.4
[2024-02-11 08:25] LABS: POTASSIUM 5.4 mEq/L (3.5-5.1)
[2024-02-11 08:26] LABS: CALCIUM 8.4 mg/dL (8.7-10.4)
[2024-02-11 08:31] LABS: CREATININE 2.8 mg/dL (0.6-1.0)
[2024-02-11 09:30] LABS: HEMATOCRIT. 27.3 % (36.0-48.0); HEMOGLOBIN. 8.9 g/dL (12.0-16.0); MEAN CORPUSCULAR HEMOGLOBIN 30.6 pg (28.0-32.0); MEAN CORPUSCULAR HGB CONC 32.6 g/dL (31.0-37.0); MEAN CORPUSCULAR VOLUME 93.9 fL (81.0-99.0); MEAN PLATELET VOLUME 8.9 fl (7.4-10.4); PLATELET 143 x1000/uL (130-400); RED BLOOD CELL COUNT 2.91 mill/uL (4.2-5.4); RED CELL DISTRIBUTION WIDTH 18.7 % (11.6-14.6)
[2024-02-11 09:43] LABS: DIFFERENTIAL COMMENT 1
[2024-02-11] MEDS ORDERED: SODIUM POLYSTYRENE SULFONATE 15 G/60 ML BOT PO ONE (09:45)
[2024-02-11] MEDS: SODIUM ZIRCONIUM CYCLOSILICATE 10GM/PACKET PO NR (11:18)
[2024-02-11 17:00] LABS: ANISOCYTOSIS 1+; NUCLEATED RED BLOOD CELLS 7 /100 WBC; PLATELET ESTIMATE NORMAL
[2024-02-12] VITALS (24 sets, daily range): BP systolic 101–118; BP diastolic 61–77; PULSE 68–113; RESP 15–25; TEMP 97.5–98.6
[2024-02-12 06:42] LABS: HEMATOCRIT. 28.6 % (36.0-48.0); HEMOGLOBIN. 9.5 g/dL (12.0-16.0); MEAN CORPUSCULAR HEMOGLOBIN 31.1 pg (28.0-32.0); MEAN CORPUSCULAR HGB CONC 33.2 g/dL (31.0-37.0); MEAN CORPUSCULAR VOLUME 93.7 fL (81.0-99.0); MEAN PLATELET VOLUME 8.5 fl (7.4-10.4); PLATELET 134 x1000/uL (130-400); RED BLOOD CELL COUNT 3.05 mill/uL (4.2-5.4); RED CELL DISTRIBUTION WIDTH 18.1 % (11.6-14.6)
[2024-02-12 06:54] LABS: POTASSIUM 5.1 mEq/L (3.5-5.1)
[2024-02-12 06:56] LABS: CALCIUM 8.3 mg/dL (8.7-10.4)
[2024-02-12 06:58] LABS: DIFFERENTIAL COMMENT 1
[2024-02-12 07:00] LABS: CREATININE 3.4 mg/dL (0.6-1.0)
[2024-02-12] MEDS: METHYLPREDNISOLONE SOD SUCC 40MG/ML (ACT-O-VIAL) IV SCH (08:26)
[2024-02-12 20:25] LABS: NUCLEATED RED BLOOD CELLS 8 /100 WBC
[2024-02-12 20:26] LABS: ANISOCYTOSIS 1+; PLATELET ESTIMATE NORMAL
[2024-02-12] MEDS: ALPRAZOLAM 0.25 MG TABLET PEG PRN (21:07)
[2024-02-13] VITALS (20 sets, daily range): BP systolic 100–133; BP diastolic 54–99; PULSE 97–128; RESP 16–32; TEMP 97.5–98
[2024-02-13] MEDS: SODIUM CHLORIDE 0.9% 500 ML IV ONE (11:16)
[2024-02-13] MEDS: DIGOXIN 500MCG/2ML AMP IV NR (11:16)
[2024-02-14] VITALS (17 sets, daily range): BP systolic 113–153; BP diastolic 67–97; PULSE 90–133; RESP 22–33; TEMP 97.4–98.4
[2024-02-14] MEDS: DILTIAZEM HCL 5MG/ML 5ML VIAL IV NR (02:07)
[2024-02-15] VITALS (24 sets, daily range): BP systolic 108–129; BP diastolic 51–89; PULSE 84–167; RESP 18–38; TEMP 97.2–98.4
[2024-02-15 08:29] LABS: HEMATOCRIT. 25.6 % (36.0-48.0); HEMOGLOBIN. 8.5 g/dL (12.0-16.0); MEAN CORPUSCULAR HEMOGLOBIN 31.2 pg (28.0-32.0); MEAN CORPUSCULAR HGB CONC 33.2 g/dL (31.0-37.0); MEAN CORPUSCULAR VOLUME 93.9 fL (81.0-99.0); MEAN PLATELET VOLUME 8.6 fl (7.4-10.4); PLATELET 113 x1000/uL (130-400); RED BLOOD CELL COUNT 2.73 mill/uL (4.2-5.4); RED CELL DISTRIBUTION WIDTH 20.1 % (11.6-14.6)
[2024-02-15 08:32] LABS: POTASSIUM 5.5 mEq/L (3.5-5.1)
[2024-02-15 08:33] LABS: CALCIUM 8.4 mg/dL (8.7-10.4)
[2024-02-15 08:38] LABS: CREATININE 2.9 mg/dL (0.6-1.0)
[2024-02-15 09:14] LABS: DIFFERENTIAL COMMENT 1
[2024-02-15] MEDS: FUROSEMIDE 100MG/10ML VIAL IVP NR (12:35)
[2024-02-15] MEDS: DIGOXIN 500MCG/2ML AMP IV NR (16:50)
[2024-02-15] MEDS: DILTIAZEM HCL 5MG/ML 5ML VIAL IV PRN (16:58)
[2024-02-15 17:06] LABS: ANISOCYTOSIS 1+; NUCLEATED RED BLOOD CELLS 8 /100 WBC; PLATELET ESTIMATE DECREASED
[2024-02-16] VITALS (15 sets, daily range): BP systolic 112–122; BP diastolic 59–83; PULSE 94–110; RESP 21–34; TEMP 97.4–98.1
== END 2024-02-16 18:50 | DRG 870 ==
LOC: ER 19:23 → 5EST 22:17 → EDBEDREQSVC 22:35 → EDBEDREQ 22:35 → CVICU 01-26 10:49 → 5EST 02-07 17:30
PROVIDERS: ADMIT Internal Medicine; ATTEND Internal Medicine
PROC: 5A09457 Assistance with Respiratory Ventilation, 24-96 Consecutive Hours, Continuous Positive Airway Pressure (ICD-10-PCS; 2024-01-24)
PROC: 30233N1 Transfusion of Nonautologous Red Blood Cells into Peripheral Vein, Percutaneous Approach (ICD-10-PCS; 2024-01-24)
PROC: 5A1D70Z Performance of Urinary Filtration, Intermittent, Less than 6 Hours Per Day (ICD-10-PCS; 2024-01-25)
PROC: 5A1955Z Respiratory Ventilation, Greater than 96 Consecutive Hours (ICD-10-PCS; 2024-01-26)
PROC: 0BH17EZ Insertion of Endotracheal Airway into Trachea, Via Natural or Artificial Opening (ICD-10-PCS; 2024-01-26)
PROC: 02HV33Z Insertion of Infusion Device into Superior Vena Cava, Percutaneous Approach (ICD-10-PCS; 2024-01-27)
PROC: B548ZZA Ultrasonography of Superior Vena Cava, Guidance (ICD-10-PCS; 2024-01-27)
PROC: 5A1D70Z Performance of Urinary Filtration, Intermittent, Less than 6 Hours Per Day (ICD-10-PCS; 2024-01-28)
PROC: 5A1D70Z Performance of Urinary Filtration, Intermittent, Less than 6 Hours Per Day (ICD-10-PCS; 2024-01-29)
PROC: 5A1D70Z Performance of Urinary Filtration, Intermittent, Less than 6 Hours Per Day (ICD-10-PCS; 2024-01-31)
PROC: 5A09457 Assistance with Respiratory Ventilation, 24-96 Consecutive Hours, Continuous Positive Airway Pressure (ICD-10-PCS; 2024-02-02)
PROC: 5A1D70Z Performance of Urinary Filtration, Intermittent, Less than 6 Hours Per Day (ICD-10-PCS; 2024-02-02)
PROC: 5A1D70Z Performance of Urinary Filtration, Intermittent, Less than 6 Hours Per Day (ICD-10-PCS; 2024-02-04)
PROC: 5A1D70Z Performance of Urinary Filtration, Intermittent, Less than 6 Hours Per Day (ICD-10-PCS; 2024-02-05)
PROC: 5A09357 Assistance with Respiratory Ventilation, Less than 24 Consecutive Hours, Continuous Positive Airway Pressure (ICD-10-PCS; principal; 2024-02-06)
PROC: 5A1D70Z Performance of Urinary Filtration, Intermittent, Less than 6 Hours Per Day (ICD-10-PCS; 2024-02-06)
PROC: 5A09557 Assistance with Respiratory Ventilation, Greater than 96 Consecutive Hours, Continuous Positive Airway Pressure (ICD-10-PCS; 2024-02-07)
PROC: 5A1D70Z Performance of Urinary Filtration, Intermittent, Less than 6 Hours Per Day (ICD-10-PCS; 2024-02-08)
PROC: 5A1D70Z Performance of Urinary Filtration, Intermittent, Less than 6 Hours Per Day (ICD-10-PCS; 2024-02-10)
PROC: 5A0945A Assistance with Respiratory Ventilation, 24-96 Consecutive Hours, High Flow/Velocity Cannula (ICD-10-PCS; 2024-02-12)
PROC: 5A1D70Z Performance of Urinary Filtration, Intermittent, Less than 6 Hours Per Day (ICD-10-PCS; 2024-02-12)
PROC: 5A1D70Z Performance of Urinary Filtration, Intermittent, Less than 6 Hours Per Day (ICD-10-PCS; 2024-02-13)
PROC: 5A09457 Assistance with Respiratory Ventilation, 24-96 Consecutive Hours, Continuous Positive Airway Pressure (ICD-10-PCS; 2024-02-14)
PROC: 5A0935A Assistance with Respiratory Ventilation, Less than 24 Consecutive Hours, High Flow/Velocity Cannula (ICD-10-PCS; 2024-02-15)
PROC: 5A1D70Z Performance of Urinary Filtration, Intermittent, Less than 6 Hours Per Day (ICD-10-PCS; 2024-02-15)
DX: A41.50 Gram-negative sepsis, unspecified (principal); J96.01 Acute respiratory failure with hypoxia; I50.33 Acute on chronic diastolic (congestive) heart failure; N18.6 End stage renal disease; R65.21 Severe sepsis with septic shock; J96.02 Acute respiratory failure with hypercapnia; J18.9 Pneumonia, unspecified organism; I21.A1 Myocardial infarction type 2; I13.2 Hypertensive heart and chronic kidney disease with heart failure and with stage 5 chronic kidney disease, or end stage renal disease; Z99.11 Dependence on respirator [ventilator] status; N17.9 Acute kidney failure, unspecified; C90.00 Multiple myeloma not having achieved remission; G93.49 Other encephalopathy; B96.20 Unspecified Escherichia coli [E. coli] as the cause of diseases classified elsewhere; Z20.822 Contact with and (suspected) exposure to COVID-19; E87.6 Hypokalemia; E83.52 Hypercalcemia; R73.9 Hyperglycemia, unspecified; R04.0 Epistaxis; Z99.2 Dependence on renal dialysis; E03.9 Hypothyroidism, unspecified; I48.91 Unspecified atrial fibrillation; J45.909 Unspecified asthma, uncomplicated; N30.90 Cystitis, unspecified without hematuria; Z87.01 Personal history of pneumonia (recurrent)
CPT/HCPCS: 36415; 36573; 36600; 71045; 71250; 78580; 80048; 80053; 80061; 80076; 80202; 81003; 82270; 82375; 82550; 82553; 82607; 82728; 82746; 82805; 82962; 83036; 83540; 83550; 83605; 83735; 83880; 84100; 84132; 84145; 84439; 84443; 84480; 84484; 85025; 85027; 85379; 85384; 86705; 86709; 86850; 86900; 86920; 87070; 87077; 87186; 87340; 87426; 90935; 93005; 93306; 93970; 94002; 94003; 94640; 94660; 97163; 97167; 99291; A6261; C1725; J0692; J0885; J1160; J1650; J1815; J1940; J2250; J2405; J2470; J2543; J2920; J3010; J3370; J3475; J3480; J3490; J7030; J7050; J7060; P9016; Q0162